=== PATIENT | male | born 1945 | race Caucasian/White ===

== ENCOUNTER 2021-07-31 17:26 | Emergency (ER) | payer OTHER ==
[~2021-07-31] VITALS: Ht 185.4 cm; Wt 93.0 kg
[2021-07-31] MEDS ORDERED: GRALISE600 MG (17:33)
[2021-07-31] MEDS ORDERED: HUMALOG100 UNIT/2 (17:33)
[2021-07-31] MEDS ORDERED: LIPITOR20 MG (17:33)
== END 2021-07-31 20:54 | disposition home or self-care (01) ==
LOC: ER 17:26
DX: T67.01XA Heatstroke and sunstroke, initial encounter (principal); X58.XXXA Exposure to other specified factors, initial encounter; Y93.9 Activity, unspecified; Y92.89 Other specified places as the place of occurrence of the external cause; Y99.9 Unspecified external cause status; E11.649 Type 2 diabetes mellitus with hypoglycemia without coma; Z79.4 Long term (current) use of insulin; R55 Syncope and collapse